=== PATIENT | female | born 1995 | race Hispanic/Latino ===

== ENCOUNTER 2021-07-15 12:14 | Inpatient (IN) | payer OTHER ==
[2021-07-15] VITALS (11 sets, daily range): BP systolic 89–122; BP diastolic 51–72
[~2021-07-15] VITALS: Ht 152.4 cm; Wt 88.0 kg
[~2021-07-15 12:14] MED LIST: **PENDING PCN ENTRY XX SCH
[2021-07-15] MEDS ORDERED: PRENTAB9 PO (12:46)
[2021-07-15] MEDS ORDERED: PENICILLIN G POTASSIUM IV 5 MU in D5W MINI-BAG PLUS 100 ML IV STA (13:14)
[2021-07-15] MEDS ORDERED: LIDOCAINE 1% MDV 20ML VIAL INFIL PRN (13:15)
[2021-07-15 13:33] LABS: HEMATOCRIT 34.9 % (36.0-47.0); HEMOGLOBIN 11.6 g/dl (12.0-15.5); MEAN CORPUSCULAR HEMOGLOBIN 28.7 pg (27.0-33.0); MEAN CORPUSCULAR HGB CONC 33.2 g/dl (32.0-36.5); MEAN CORPUSCULAR VOLUME 86.4 fl (80.0-96.0); PLATELET COUNT, AUTOMATED 237 10^3/uL (150-450); RED BLOOD COUNT 4.04 10^6/uL (4.00-5.40); WHITE BLOOD COUNT 9.5 10^3/uL (4.0-10.0)
[2021-07-15 13:48] LABS: GLUCOSE,RANDOM 83 MG/DL (LESS THAN 200)
--- NOTE | 2021-07-15 15:36 | HPEPDOC ---
Obstetrical History & Physical General Date of Admission Jul 15, 2021 at 12:14 History of Present Illness Presenting for IOL for A1GDM at 39 wks. 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: 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 cysts Past Medical History Medical History obesity, seizure disorder, infertility, anxiety, varicella NI Surgical History: [place] teeth Family History Significant Family History: Diabetes, Heart disease, Hypertension Social History Marital Status: Psychosocial History: Anxiety * Smoker: non-smoker Alcohol: Denies Drugs: denies Abuse Violence Screening Have you been hit/kicked/slapp: No Have you been sexually assault: No Imunizations Tdap status: current Influenza Status: current Allergies Coded Allergies: phenytoin (Verified Allergy, Unknown, RASH, 07/15/21) levetiracetam (Verified Adverse Reaction, Unknown, sucidal thoughts, 07/15/21) Medications Scheduled No.137/Iron/Folic Acd ( Vitamin Tablet) 1 Each Tablet, 1 TAB PO DAILY Physical Examination Physical Examination GENERAL: Alert and oriented times three. BREAST: . ABDOMEN: Gravid and non-tender to touch. FETUS: Is vertex (VTX) by sterile vaginal examination (SVE), fetus is vertex (VTX) by Massimo. HEART RATE: Regular rate and rhythm. LUNGS: Clear to auscultation (CTA). EXTREMITIES: No edema. No clonus. Deep tendon reflexes (DTRs) + 2. Vital Signs/I&O Vital Signs Date Time Temp Pulse Resp B/P (MAP) Pulse Ox O2 Delivery O2 Flow Rate FiO2 07/15/21 12:40 97.1 99 16 117/72 (87) Laboratory Data 24H LABS Laboratory Tests 2 07/15/21 12:27: Serology Scanned Report Hepatitis B Testing 07/15/21 13:15: Nucleated Red Blood Cells % (auto) 0.0, Random Glucose 83, Syphilis Serology NONREACTIVE CBC/BMP Laboratory Tests 07/15/21 13:15 Pertinent Laboratoy Data Blood Type: O+ RBC Antibody Screen: Negative HIV: Negative Hepatitis B: Negative Rapid Plasma Reagin: Nonreactive Rubella: Immune Varicella: Nonreactive Chlamydia/Gonorrhea: Negative Group B Streptococcus: Positive Cystic Fibrosis: Negative Glucose Tolerance Test: 198 Anatomy Ultrasound Placenta Location: Posterior Normal Anatomy: Yes Placenta Previa: No Vaginal Examination Dilation: 2cm Effacement: 70% Station: -3 Cervical Consistency: Soft Cervical Position: Posterior Presentation: Cephalic presentation Assessment Heart Rate (FHR): 150 Variability: Moderate Accelerations: Positive Decelerations: None Tocometer Contractions: Yes (occasional) Strength: palpated as mild, resting tone palp/soft Multi-drug resistant Organism: No history of MDRO Assessment/Plan Assessment Yadi is a 26-year-old (G)1 para (P)0 at 39+1 weeks by LMP. Presents to Labor and Delivery (L&D) for scheduled IOL for A1GDM. 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 Diet: regular during cervical ripening. Group B Streptococcus (GBS) positive, initiate GBS prophylaxis in labor. Labs and intravenous (IV) per unit protocol. Counseled on Pitocin and induction of labor (IOL). Lactated Ringers (LR): saline lock during cervical ripening, then at 125 mL/hr during induction. Anticipate normal spontaneous delivery (). Cervical ripening with cervical catheter filled to 60/60 placed during exam. intermittent monitoring during cervical ripening C-S as appropriate. Labor and Delivery Counseling Reviewed plan of care, induction of labor, cervical ripening, and options for comfort measures. Expressed understanding and agreement with plan of care. CLAUDIA TRAN CNM Jul 15, 2021 15:36
[2021-07-15] MEDS ORDERED: PENICILLIN G POTASSIUM IV 2.5 MU in IV 1 EA IV SCH (17:15)
[2021-07-15] MEDS ORDERED: OXYTOCIN DRIP 30 UNITS in IV 1 EA IV SCH (21:15)
[2021-07-15] MEDS ORDERED: OXYTOCIN INJ 10 UNITS/ML VIAL (J2590) IV PRN (21:20)
--- NOTE | 2021-07-15 21:23 | IPNPDOC ---
Text Note Date of Service Item Value Date Time White Blood Count 9.5 10^3/uL 07/15/21 1315 Red Blood Count 4.04 10^6/uL 07/15/21 1315 Hemoglobin 11.6 g/dl L 07/15/21 1315 Hematocrit 34.9 % L 07/15/21 1315 Mean Corpuscular Volume 86.4 fl 07/15/21 1315 Mean Corpuscular Hemoglobin 28.7 pg 07/15/21 1315 Mean Corpuscular Hemoglobin Concent 33.2 g/dl 07/15/21 1315 Red Cell Distribution Width 13.4 % 07/15/21 1315 Platelet Count 237 10^3/uL 07/15/21 1315 The patient was seen on 07/15/21. NOTE 07/15/212114 assessment patient admitted iol obesity agdm1 diet GBS positive anxiety seizure disorder . had cook's catheter fell out minimal contractions. reviewed plan of care re moving forward continue with Pitocin start antibiotics for GBS and offered arom after 4 hours re antibiotics and offered epidural expressed understanding safe to proceed category 1 strip cervix soft posterior stretchy 4 cm -3 station 70% effaced VS,Fishbone, I+O VS, Fishbone, I+O Laboratory Tests 07/15/21 13:15 Vital Signs Date Time Temp Pulse Resp B/P (MAP) Pulse Ox O2 Delivery O2 Flow Rate FiO2 07/15/21 19:14 98.3 87 16 122/64 (83) Alex Martinez MD Jul 15, 2021 21:22
[2021-07-15] MEDS: LR 1,000 ML IV SCH (21:42)
[2021-07-16] VITALS (20 sets, daily range): BP systolic 88–136; BP diastolic 51–78
[2021-07-16] MEDS: PENICILLIN G POTASSIUM IV 2.5 MU in IV 1 EA IV SCH ×2 (02:05→05:59)
[2021-07-16] MEDS: LR 1,000 ML IV SCH ×2 (05:27→08:27)
--- NOTE | 2021-07-16 06:54 | IPNPDOC ---
Text Note Date of Service Item Value Date Time Platelet Count 237 10^3/uL 07/15/21 1315 Red Cell Distribution Width 13.4 % 07/15/21 1315 Mean Corpuscular Hemoglobin Concent 33.2 g/dl 07/15/21 1315 Mean Corpuscular Hemoglobin 28.7 pg 07/15/21 1315 Mean Corpuscular Volume 86.4 fl 07/15/21 1315 Hematocrit 34.9 % L 07/15/21 1315 Hemoglobin 11.6 g/dl L 07/15/21 1315 Red Blood Count 4.04 10^6/uL 07/15/21 1315 White Blood Count 9.5 10^3/uL 07/15/21 1315 Vital Signs Label Value Date Time Blood Pressure Assessment 94/55 (68) 07/16/21 0458 Source Automatic Cuff (NIBP) Respiratory Rate 16 bpm 07/16/21 0458 Pulse 75 07/16/21 0458 Pulse 77 07/16/21 0428 Respiratory Rate 16 bpm 07/16/21 0428 Blood Pressure Assessment 88/51 (63) 07/16/21 0428 Source Automatic Cuff (NIBP) Blood Pressure Assessment 100/55 (70) 07/16/21 0359 Source Automatic Cuff (NIBP) Respiratory Rate 16 bpm 07/16/21 0359 Pulse 82 07/16/21 0359 Blood Pressure Assessment 102/55 (71) 07/16/21 0328 Source Automatic Cuff (NIBP) Respiratory Rate 16 bpm 07/16/21 0328 Pulse 82 07/16/21 0328 Pulse 76 07/16/21 0300 Respiratory Rate 16 bpm 07/16/21 0300 Blood Pressure Assessment 97/52 (67) 07/16/21 0300 Source Automatic Cuff (NIBP) Blood Pressure Assessment 98/57 (71) 07/16/21 0259 Source Automatic Cuff (NIBP) Respiratory Rate 16 bpm 07/16/21 0259 Pulse 77 07/16/21 0259 The patient was seen on 07/16/21. NOTE REVIEW PROGRESS TO DATE. PITOCIN AT 18 MUNITS INTENSITY CONTRACTIONS MILD CATEGORY 1 STRIP CERVIX MID POSITION 5-6 CM AROM CLEAR OT TO LEFT OFFERED EPIDURAL DECLINED FOR NOW SAFE TO PROCEED FULLY COVERED RE ANTIBIOTICS VS,Fishbone, I+O VS, Fishbone, I+O Laboratory Tests 07/15/21 13:15 Vital Signs Date Time Temp Pulse Resp B/P (MAP) Pulse Ox O2 Delivery O2 Flow Rate FiO2 07/16/21 04:58 75 16 94/55 (68) 07/16/21 01:29 97.4 I&O- Last 24 Hours up to 6 AM 07/16/21 06:00 Intake Total 1410 ml Output Total 1450 ml Balance -40 ml Alex Martinez MD Jul 16, 2021 06:52
[2021-07-16] MEDS ORDERED: FENTANYL 2MCG/ML ROPIVACAINE 0.2% IN 0.9% NACL 100ML IVBAG As Ordered ONE (08:34)
--- NOTE | 2021-07-16 08:50 | IPNPDOC ---
Obstetrical Progress Note Date of Service Jul 16, 2021 Subjective Pt moaning and breathing through contractions with additional complaints of gas pain. Objective Vital Signs Date Time Temp Pulse Resp B/P (MAP) Pulse Ox O2 Delivery O2 Flow Rate FiO2 07/16/21 08:01 84 117/67 (84) 07/16/21 07:09 16 07/16/21 01:29 97.4 Assessment Heart Rate (FHR): 120 Variability: Moderate Accelerations: Positive Decelerations: Variable (occasional variable with brisk spontaneous recovery to baseline) Heart Rate Tracing: Category II Tocometer Contractions: Yes Frequency: every 2-5 min. (on 18 mu pitocin) Duration: greater than 60 seconds Strength: palpated as moderate, resting tone palp/soft Sterile Vaginal Examination Dilation: 6 cm Effacement (%): 80% Station: -2 Cervical Consistency: Soft Cervical Position: Posterior Postion/Presentation: Cephalic presentation Assessment and Plan Age: 26 : 1 Term: 0 Pre-term: 0 Abortions: 0 Livin Weeks & Days 39+1 Status: Reassuring Group B Streptococcus: Positive Anticipate: Vaginal Delivery Additional Comments Assumed care at [address] Martinez. Pt assisted to breath through contractions with comfort measures. Discussed options for pain medication (IV and epidural). Pt states considering an epidural in the next half hour. Reviewed need for IV fluid bolus prior to receiving an epidural, and pt requested to start the epidural bolus. During this time frame Yadi called out that she felt an urge to have a bowl movement, and consented to a cervical exam. 1000L LR bolus for epidural, then return to 125 mL/hr, continue pitocin induction and titrate per protocol, continue GBS prophylaxis continuous efm x2, monitor for change in or maternal status, may have epidural as desired, evaluate for change as indicated, anticipate vaginal delivery. CLAUDIA TRAN CNM Jul 16, 2021 08:49
[2021-07-16] MEDS: OXYTOCIN DRIP 30 UNITS in IV 1 EA IV PRN ×2 (10:00→10:31)
[2021-07-16] MEDS ORDERED: OXYTOCIN DRIP 30 UNITS in IV 1 EA IV SCH (10:35)
[2021-07-16] MEDS ORDERED: DOCUSATE SODIUM 100MG CAPSULE PO PRN (10:35)
[2021-07-16] MEDS ORDERED: DIBUCAINE 1% OINTMENT 30GM TOP PRN (10:35)
[2021-07-16] MEDS ORDERED: LIDOCAINE 1% MDV 20ML VIAL INFIL ONE (10:35)
[2021-07-16] MEDS ORDERED: MEASLES,MUMPS,RUBELLA VACCINE INJ (MMR-II) (90707) SC SCH (10:35)
[2021-07-16] MEDS ORDERED: METHYLERGONOVINE MALEATE 0.2 MG TAB PO PRN (10:35)
[2021-07-16] MEDS ORDERED: RHOGAM 300 MCG (1500 IU) INJ (J2790) IM SCH (10:35)
--- NOTE | 2021-07-16 11:09 | DNPDOC ---
[facility] Delivery Note Delivery Note DATE OF DELIVERY: [id number] PREDELIVERY DIAGNOSIS: 39-1/7 weeks' gestation and labor. POST DELIVERY DIAGNOSIS: Delivered. PROCEDURE: Spontaneous vaginal delivery. LEGAL BILLING COORDINATOR: Temitope Tran CNM ANESTHESIA: none. ESTIMATED BLOOD LOSS: 300 mL. FINDINGS: 7 pound 3 ounce female infant Cecy, Score 9/9, no nuchal cord noted. DELIVERY SUMMARY: Patient is a 26-year-old 1 now para 1 who was admitted to labor and delivery for IOL for A1GDM. Yadi called out with increased pain while waiting for anesthesia for epidural and was found to be C/C/+2. Pt was assisted to rotate to right lateral and begin pushing with contractions. Progressed to in OA with restitution to [place]. No nuchal cord was noted after delivery of the head. The right anterior shoulder delivered followed easily by the posterior shoulder and corpus. Female infant was placed immediately skin to skin on the maternal abdomen where she was dried and stimulated to cry. Pitocin infusion was initiated per protocol. The placenta delivered spontaneously intact in Miguel presentation with minimal bleeding and the fundus immediately firmed at u-1. The vagina and cervix were swept with no clots located. Examination of the perineum revealed a first degree MLL. Lidocaine was injected for local analgesia and the laceration was repaired using the Barbara method with 3-[address]1. During the repair an increase in bleeding was noted and the fundus found to be at u+2. The cervix was swept for 150 mL of clots increasing the EBL to a total of 300mL, bleeding resolved appropriately. 1000mcg cytotec was placed rectally. Mother and baby entered the recovery phase in stable condition, skin to skin. TEMITOPE TRAN CNM Jul 16, 2021 11:09
[2021-07-16] MEDS: IBUPROFEN 800 MG TAB PO PRN (12:56)
[2021-07-16] MEDS: ACETAMINOPHEN TAB 650MG DOSE (2X325MG) PO PRN (19:47)
[2021-07-17] MEDS: IBUPROFEN 800 MG TAB PO PRN ×3 (01:18→18:46)
[2021-07-17 06:00] VITALS: BP 112/58
--- NOTE | 2021-07-17 06:57 | IPNPDOC ---
Progress Note Date of Service: Jul 17, 2021 Progress Note 26 yo G1 now P1 PPD#1 s/p uncomplicated yesterday morning after being admitted for an IOL for GDMA1. No acute events overnight. This morning Yadi reports feeling well. She is ambulating, voiding without difficulty, and tolerating a regular diet. Lochia has been minimal. Pain is well controlled. She is Vitals - VSS, afebrile, normotensive, non tachycardic General - AAOX3, laying in bed, pleasant and conversant, NAD Abdomen - Soft, nondistended. Fundus firm at U-2. No fundal tenderness. Extremities - trace edema UO - appropriate Reji is doing well and is making an appropriate recovery. No issues. Continue routine care. Anticipate DC home tomorrow. All questions answered. Juan VS, I&O, 24H, [place]ary Vital Signs/I&O Vital Signs Date Time Temp Pulse Resp B/P (MAP) Pulse Ox O2 Delivery O2 Flow Rate FiO2 07/17/21 06:00 97.3 80 16 112/58 (76) 98 Room Air I&O- Last 24 Hours up to 6 AM 07/17/21 06:00 Intake Total 3206 ml Output Total 1300 ml Balance 1906 ml SANDRA ALVARADO DO Jul 17, 2021 06:57
[2021-07-17 07:30] LABS: HEMATOCRIT 29.8 % (36.0-47.0); HEMOGLOBIN 9.8 g/dl (12.0-15.5); MEAN CORPUSCULAR HEMOGLOBIN 28.6 pg (27.0-33.0); MEAN CORPUSCULAR HGB CONC 32.9 g/dl (32.0-36.5); MEAN CORPUSCULAR VOLUME 86.9 fl (80.0-96.0); PLATELET COUNT, AUTOMATED 210 10^3/uL (150-450); RED BLOOD COUNT 3.43 10^6/uL (4.00-5.40); WHITE BLOOD COUNT 12.1 10^3/uL (4.0-10.0)
[2021-07-17] MEDS: PRENATAL VITAMINS CHEWABLE TABLET PO SCH (09:17)
[2021-07-17 17:54] VITALS: BP 114/58
[2021-07-18] MEDS: ACETAMINOPHEN TAB 650MG DOSE (2X325MG) PO PRN (05:12)
[2021-07-18] MEDS ORDERED: IBUP80TA PO (05:43)
[2021-07-18] MEDS ORDERED: COLA100C5 PO (05:43)
[2021-07-18] MEDS ORDERED: ACET1TAB55 PO (05:43)
--- NOTE | 2021-07-18 05:49 | OBDS ---
[facility] Obstetrical Discharge Sum. Obstetrical Discharge Summary Scale Model Maker/Provider: MATTIE JHAVERI DO Date: Jul 18, 2021 Time: 05:35 : 1 Term: 1 Pre-term: 0 Abortions: 0 Livin VDRL: Non-Reactive Rh: Positive Rubella: Immune Labor uncomplicated Delivery spontaneous vaginal delivery Infant Sex: Female Infant Weight: pounds (7), ounces (3) Anesthesia: Local Anesthesia A/P, Post Course List any complications Admission diagnosis: 39 weeks gestation, A1GDM. Discharge diagnosis: status post normal spontaneous vaginal delivery Condition at Discharge: Good Discharge Instructions: Home Activity: vaginal rest, otherwise as tolerated Diet: resume pre-hospital Medications: at [place] Follow-up: 2 weeks and 6 weeks at [facility] [facility] Other: Will need glucose tolerance test at 6 weeks Day of discharge exam a&o x3 nonlabored breathing abd soft, nontender uterus firm at U-2 negative calf tenderness bilaterally MATTIE JHAVERI DO Jul 18, 2021 05:40
[2021-07-18 05:50] VITALS: BP 112/59
[2021-07-18] MEDS: PRENATAL VITAMINS CHEWABLE TABLET PO SCH (07:43)
[2021-07-18] MEDS: IBUPROFEN 800 MG TAB PO PRN (12:37)
== END 2021-07-18 12:40 | disposition home or self-care (01) | DRG 807 ==
LOC: EDBD 12:14 → M LDI 12:14 → M OBS 07-16 13:22
PROVIDERS: ADMIT Registered Nurse; ATTEND Registered Nurse
PROC: 3E033VJ Introduction of Other Hormone into Peripheral Vein, Percutaneous Approach (ICD-10-PCS; 2021-07-15)
PROC: 10E0XZZ Delivery of Products of Conception, External Approach (ICD-10-PCS; principal; 2021-07-16)
PROC: 0HQ9XZZ Repair Perineum Skin, External Approach (ICD-10-PCS; 2021-07-16)
DX: O24.420 Gestational diabetes mellitus in childbirth, diet controlled (principal); Z37.0 Single live birth; O99.214 Obesity complicating childbirth; Z3A.39 39 weeks gestation of pregnancy; E66.9 Obesity, unspecified; O99.824 Streptococcus B carrier state complicating childbirth; O70.0 First degree perineal laceration during delivery

== ENCOUNTER 2023-03-06 08:52 | Emergency (ER) | payer OTHER ==
[~2023-03-06] VITALS: Ht 152.4 cm; Wt 84.7 kg
[~2023-03-06 08:52] MED LIST changes: -**PENDING PCN ENTRY XX SCH; +ACET1TAB55 PO; +COLA100C5 PO; +IBUP80TA PO; +PRENTAB9 PO
[2023-03-06] MEDS ORDERED: ACETAMINOPHEN 1000MG 100ML IV BAG IV ONE (11:40)
[2023-03-06] MEDS ORDERED: METOCLOPRAMIDE INJ 10MG/2ML VIAL IV ONE (11:40)
[2023-03-06] MEDS ORDERED: diphenhydrAMINE 50MG/ML VIAL IV ONE (11:40)
[2023-03-06] MEDS ORDERED: NS 1,000 ML IV ONE (11:40)
[2023-03-06] MEDS ORDERED: RIZA10TA64 PO (13:35)
[2023-03-06 14:06] VITALS: BP 120/62; TEMP 97.3; O2SAT 98
== END 2023-03-06 14:09 | disposition home or self-care (01) ==
LOC: M ED 08:52
DX: G43.909 Migraine, unspecified, not intractable, without status migrainosus (principal); R56.9 Unspecified convulsions; M79.7 Fibromyalgia; G47.33 Obstructive sleep apnea (adult) (pediatric); Z88.8 Allergy status to other drugs, medicaments and biological substances
CPT/HCPCS: 70450; 84702; 96374; 96375; 99284; J0131; J1100; J1200; J2765